=== PATIENT | female | born 1940 | race Caucasian/White ===

== ENCOUNTER → 2018-07-22 | Outpatient (CLI) | payer OTHER | END | disposition home or self-care (01) | LOC: RAH 13:51 | PROVIDERS: ATTEND Internal Medicine Hematology & Oncology | DX: R92.8 Other abnormal and inconclusive findings on diagnostic imaging of breast (principal); Z85.3 Personal history of malignant neoplasm of breast | CPT/HCPCS: 77065 ==

== ENCOUNTER → 2019-12-15 | Outpatient (CLI) | payer OTHER | END | disposition home or self-care (01) | LOC: RAH 13:42 | PROVIDERS: ATTEND Internal Medicine Hematology & Oncology | DX: C50.912 Malignant neoplasm of unspecified site of left female breast (principal); Z85.3 Personal history of malignant neoplasm of breast ==

== ENCOUNTER 2024-11-08 09:46 | Emergency (ER) | payer OTHER ==
[~2024-11-08] VITALS: Ht 152.4 cm; Wt 52.2 kg
--- NOTE | 2024-11-08 10:34 | HMCIMG ---
Exam Type: HIP UNILAT 2-3VW LEFT Clinical Information: injury Comparison: None Findings: The bone examination is unremarkable. No fractures or dislocations are seen. No radiopaque foreign bodies are noted. Soft tissues are preserved. IMPRESSION: Normal examination.
--- NOTE | 2024-11-08 10:36 | HMCIMG ---
Exam Type: ANKLE COMP 3VWS LT, TIBIA/FIBULA 2VWS LT Clinical Information: injury Comparison: None Findings: The bone examination is unremarkable. No fractures or dislocations are seen. No radiopaque foreign bodies are noted. Small 3 mm radiopaque foreign body consistent with soft tissue density anterior to distal leg at the tibiotalar joint level, within the subcutaneous tissues. IMPRESSION: Subcutaneous foreign body as noted. No fractures or dislocations.
[2024-11-08 11:21] VITALS: BP 130/52; PULSE 68; RESP 18; TEMP 97.8; O2SAT 98
--- NOTE | 2024-11-08 11:29 | ERN ---
ED Note History of Present Illness Stated Complaint: I THINK I BROKE MY ANKLE Chief Complaint: Ankle Problem Time Seen by MD: 09:50 Dictation: 83-year-old female presents to the ED for evaluation of left ankle pain onset four days ago. Patient reports she fell and injured her left ankle, reporting inability to bear weight, but denies any LOC, vomiting, hip pain or any other associated symptoms at this time. Allergies: Coded Allergies: No Known Allergies (Unverified Allergy, Unknown, 12/02/13) Past Medical History Past Medical History: High Cholesterol, Hypertension Surgical History: Other Review of System Dictation Constitutional: Positive for head injury Negative for fever,chills, and weight loss Eyes: Negative for injury, pain,redness, and discharge ENT: Negative for injury,pain or swelling Cardiovascular: Negative for chest pain, palpitations, and edema Respiratory: Negative for shortness of breath, cough, and wheezing, Abdomen/GI: Negative for abdominal pain, nausea, vomiting, diarrhea, and constipation Back: Negative for injury and pain : Negative for injury, bleeding and discharge MS/Extremity: Positive for left ankle injury Skin: Negative for rash, and discoloration Neuro: Negative for headache, weakness, numbness, tingling, and seizure Psych: Negative for suicide ideation, homicidal ideation, and hallucinations Initial Vital Sign VS Vital Signs Date Time Temp Pulse Resp B/P (MAP) Pulse Ox O2 Delivery O2 Flow Rate FiO2 11/08/24 09:47 97.2 99 14 117/83 100 Room Air 0 11/08/24 11:21 21 Physical Exam Dictation General: awake, alert, NAD Head/Face: Normocephalic, atraumatic Eyes: PERRL, EOMI, vision at baseline ENT: oral cavity clear, TMs clear, no signs of infection Neck: Trachea midline, supple, no nuchal rigidity Cardiovascular: RRR, normal S1/S2, No MRGs, no JVD Respiratory: CTAB, no respiratory distress, No rales or wheezes Abdomen: Soft, non-tender, non-distended, normal bowel sounds, no guarding or rebound. Skin: Warm, dry, normal turgor, no rash MS/Extremity: Pulses equal, no cyanosis, neurovascular intact, left ankle tenderness Neuro: COAx4, GCS 15, strength 5/5, CN 2-12 intact, normal cerebellar exam, normal gait, Psych: Normal behavior, mood, and affect normal Results (Laboratory/Radiology) X-RAY Comment: REASON: injury ORDERING PHYSICIAN: MOISES ALICIA MD PROCEDURE: [id number] - ANKLE COMP 3VWS LT Exam Type: ANKLE COMP 3VWS LT, TIBIA/FIBULA 2VWS LT Clinical Information: injury Comparison: None Findings: The bone examination is unremarkable. No fractures or dislocations are seen. No radiopaque foreign bodies are noted. Small 3 mm radiopaque foreign body consistent with soft tissue density anterior to distal leg at the tibiotalar joint level, within the subcutaneous tissues. IMPRESSION: Subcutaneous foreign body as noted. No fractures or dislocations. DICTATED BY: ROBERT ALFRED MD DATE: 11/08/241031 REASON: injury ORDERING PHYSICIAN: MOISES ALICIA MD PROCEDURE: TIBFIB LT - TIBIA/FIBULA 2VWS LT Exam Type: ANKLE COMP 3VWS LT, TIBIA/FIBULA 2VWS LT Clinical Information: injury Comparison: None Findings: The bone examination is unremarkable. No fractures or dislocations are seen. No radiopaque foreign bodies are noted. Small 3 mm radiopaque foreign body consistent with soft tissue density anterior to distal leg at the tibiotalar joint level, within the subcutaneous tissues. IMPRESSION: Subcutaneous foreign body as noted. No fractures or dislocations. DICTATED BY: ROBETR ALFRED MD DATE: 11/08/241031 REASON: injury ORDERING PHYSICIAN: MOISES ALICIA MD PROCEDURE: HIP U 2V L - HIP UNILAT 2-3VW LEFT Exam Type: HIP UNILAT 2-3VW LEFT Clinical Information: injury Comparison: None Findings: The bone examination is unremarkable. No fractures or dislocations are seen. No radiopaque foreign bodies are noted. Soft tissues are preserved. IMPRESSION: Normal examination. DICTATED BY: ROBERT ALFRED MD DATE: 11/08/241031 ED Course ED Course Orders Procedure Category Date Status Time Ankle Comp 3vws Lt RAD 11/08/24 Resulted 09:56 Tibia/Fibula 2vws Lt RAD 11/08/24 Resulted 09:56 Hip Unilat 2-3vw Left RAD 11/08/24 Resulted 10:13 Vital Signs Date Time Temp Pulse Resp B/P (MAP) Pulse Ox O2 Delivery O2 Flow Rate FiO2 11/08/24 11:21 97.9 68 18 130/52 98 Room Air* 0 21 11/08/24 09:47 97.2 99 14 117/83 100 Room Air 0 Medical Decision Making MDM MDM: Differential diagnosis: Ankle fracture, ankle pain, fall Short posterior splint placed to left lower extremity by ER nurse Risk of complication and/or morbidity or mortality of patient management: None Medications-Per medication reconciliation Need for hospitalization: Patient does not meet criteria for hospitalization. Need for emergency major/minor surgery: No There are no social concerns with this patient. Prescription drug management Prescriptions will include symptomatic care I independently interpreted the test that were performed, results were reviewed by me and considered findings on radiology if ordered. DX & DISP Disposition: Discharge Departure Impression: Primary Impression: Left ankle pain Condition: Stable Referrals: CY LUCAS MD (PCP) MOISES ALICIA MD November 08, 2024 11:28
--- NOTE | 2024-11-08 11:30 | NUR ---
POSTERIOR SPLINT TO LT ANKLE APPLIED AND CRUTCH TRAINING PROVIDED, PT VERBALIZED UNDERSTANDING AND RETURNED DEMONSTRATION.
== END 2024-11-08 12:02 | disposition home or self-care (01) ==
LOC: EDH 09:46
DX: M25.572 Pain in left ankle and joints of left foot (principal); E78.00 Pure hypercholesterolemia, unspecified; I10 Essential (primary) hypertension
CPT/HCPCS: 29515; 73502; 73590; 73610; 99283